=== PATIENT | female | born 1940 | race Caucasian/White ===

== ENCOUNTER → 2017-05-17 | Outpatient (CLI) | payer MEDICARE ==
[2015-11-11 13:00] VITALS: BP 137/50
[~2017-05-17] MED LIST: AMLO10TA2 PO; BIMA2.5D EACHEYE; BIMA2.5D OP; PROAIR HFA8.5 GM INH; SIMV40TA3 PO; TELM1TAB3 PO
--- NOTE | 2017-05-17 11:50 | CARD ---
APPROVED REPORT EXAM: Two-dimensional and M-mode echocardiogram with Doppler and color Doppler. Other Information Quality : Good INDICATION Hypertension/HCVD RISK FACTORS Smoking 2D DIMENSIONS RVDd2.4 (2.9-3.5cm)Left Atrium(2D)2.7 (1.6-4.0cm) IVSd1.1 (0.7-1.1cm)Aortic Root(2D)2.9 (2.0-3.7cm) LVDd3.8 (3.9-5.9cm)LVOT Diameter2.0 (1.8-2.4cm) PWd1.0 (0.7-1.1cm)LVDs2.8 (2.5-4.0cm) FS (%) 30.0 %SV32.7 ml LVEF(%)55.0 (>50%) Aortic Valve AoV Peak Drew.143.4cm/sAoV VTI28.8cm AO Peak GR.8.2mmHgLVOT Peak Drew.98.6cm/s LVOT VTI 22.33cmAO Mean GR.4mmHg SHAGUFTA (VMAX)2.66lb1RZM (VTI)2.48cm2 AI P 1/2 Lbhn468bp Mitral Valve MV E Uenuupck83.5cm/sMV DECEL SQRO449qf MV A Wjhxtaua93.8cm/sMV SKK08sf E/A Ratio0.8MVA (PHT)3.35cm2 TDI E/Lateral E'8.4E/Medial E'14.0 Tricuspid Valve TR P. Mvvztyvd616md/sRAP PVSXRGBL7dbSh TR Peak Gr.84irLsHSAB71syVz Pulmonary Vein S1 Pozwgbli93.4cm/sD2 Ngjliuph49.6cm/s LEFT VENTRICLE The left ventricle is normal size. There is normal left ventricular wall thickness. The left ventricu lar systolic function is normal and the ejection fraction is within normal range. The Ejection Fracti on is 55%. There is normal LV segmental wall motion. Transmitral Doppler flow pattern is Grade I-abno rmal relaxation pattern. RIGHT VENTRICLE The right ventricle is normal size. The right ventricular systolic function is normal. ATRIA The left atrium size is normal. The right atrium size is normal. The interatrial septum is intact wit h no evidence for an atrial septal defect or patent foramen ovale as noted on 2-D or Doppler imaging. AORTIC VALVE The aortic valve is sclerotic but opens well. Doppler and Color Flow revealed mild to moderate aortic regurgitation. There is no significant aortic valvular stenosis. MITRAL VALVE The mitral valve is calcified but opens well. Mitral annular calcification is mild. There is no evide nce of mitral valve prolapse. There is no mitral valve stenosis. Doppler and Color-flow revealed mild mitral regurgitation. TRICUSPID VALVE The tricuspid valve is normal in structure and function. Doppler and Color Flow revealed trace to mil d tricuspid regurgitation. The PA pressure was estimated at 41 mmHg. There is no tricuspid valve sten osis. PULMONIC VALVE The pulmonic valve is not well visualized but appears to be functioning normally by Doppler interroga tion. Doppler and Color Flow revealed no pulmonic valvular regurgitation. There is no pulmonic valvul ar stenosis. GREAT VESSELS The aortic root is normal in size. The ascending aorta is not well seen. The IVC is normal in size an d collapses >50% with inspiration. PERICARDIAL EFFUSION There is no evidence of significant pericardial effusion. Critical Notification Critical Value: No <Conclusion> The left ventricular systolic function is normal and the ejection fraction is within normal range. Th e Ejection Fraction is 55%. There is normal LV segmental wall motion. Doppler and Color Flow revealed mild to moderate aortic regurgitation. Doppler and Color Flow revealed trace to mild tricuspid regurgitation. The PA pressure was estimated at 41 mmHg.
== END | disposition home or self-care (01) ==
LOC: ECHO 09:19
PROVIDERS: ATTEND Internal Medicine Cardiovascular Disease
DX: I08.2 Rheumatic disorders of both aortic and tricuspid valves (principal); I10 Essential (primary) hypertension
CPT/HCPCS: 93306

== ENCOUNTER → 2017-10-31 | Outpatient (CLI) | payer MEDICARE ==
[2017-10-31] MEDS: REGADENOSON 0.4 MG/5 ML DISP.SYRIN. IV ×2 (10:09)
== END | disposition home or self-care (01) ==
LOC: NM 08:01
DX: I73.9 Peripheral vascular disease, unspecified (principal); I65.22 Occlusion and stenosis of left carotid artery
CPT/HCPCS: 78452; 93017; 93880; 96374; 96375; 96376; A9500; J2785

== ENCOUNTER → 2018-07-03 | Outpatient (CLI) | payer MEDICARE ==
[2015-11-11 13:00] VITALS: BP 137/50
[~2018-07-03] MED LIST changes: -AMLO10TA2 PO; +AMLO10TA6 PO
--- NOTE | 2018-07-03 12:04 | CARD ---
MR#: [id number] Date of Study: 07/03/2018 Ordering Physician: BRYCE JOSEPH, Referring Physician: BRYCE JOSEPH Tech: Jasmine Salguero RDCS APPROVED REPORT EXAM: Two-dimensional and M-mode echocardiogram with Doppler and color Doppler. Other Information Quality : Good INDICATION Hypertension/HCVD 2D DIMENSIONS RVDd2.1 (2.9-3.5cm)Left Atrium(2D)2.8 (1.6-4.0cm) IVSd0.9 (0.7-1.1cm)Aortic Root(2D)2.9 (2.0-3.7cm) LVDd4.2 (3.9-5.9cm)LVOT Diameter2.1 (1.8-2.4cm) PWd0.7 (0.7-1.1cm)LVDs3.1 (2.5-4.0cm) FS (%) 26.3 %SV40.0 ml LVEF(%)55.0 (>50%) Aortic Valve AoV Peak Drew.125.5cm/sAoV VTI22.4cm AO Peak GR.6.3mmHgLVOT Peak Drew.84.7cm/s LVOT VTI 19.10cmAO Mean GR.3mmHg SHAGUFTA (VMAX)2.96ix1KLN (VTI)2.99cm2 AI P 1/2 Iaan485qq Mitral Valve MV E Qvscqfxv47.2cm/sMV DECEL IWJA903aj MV A Ghkssrdi35.6cm/sMV LGT99xz E/A Ratio0.7MVA (PHT)3.29cm2 TDI E/Lateral E'6.1E/Medial E'8.6 Tricuspid Valve TR P. Ucucdvfa137ve/sRAP VNUZZDRD6hfOl TR Peak Gr.89uaSkBNSQ32rwAr Pulmonary Vein S1 Qisvscsl59.1cm/sD2 Qeonjvfj60.4cm/s LEFT VENTRICLE The left ventricle is normal size. There is normal left ventricular wall thickness. The left ventricu lar systolic function is normal. The ejection fraction is 55-60%. There is normal LV segmental wall m otion. Transmitral Doppler flow pattern is Grade I-abnormal relaxation pattern. RIGHT VENTRICLE The right ventricle is normal size. The right ventricular systolic function is normal. ATRIA The left atrium size is normal. The right atrium size is normal. The interatrial septum is intact wit h no evidence for an atrial septal defect or patent foramen ovale as noted on 2-D or Doppler imaging. AORTIC VALVE The aortic valve is not well visualized but appears to be opening well. Doppler and Color Flow reveal ed mild aortic regurgitation. There is no significant aortic valvular stenosis. MITRAL VALVE The mitral valve is calcified but opens well. There is no evidence of mitral valve prolapse. There is no mitral valve stenosis. Doppler and Color-flow revealed trace to mild mitral regurgitation. TRICUSPID VALVE The tricuspid valve is normal in structure and function. Doppler and Color Flow revealed mild tricusp id regurgitation. The PA pressure was estimated at 36 mmHg. There is no tricuspid valve stenosis. PULMONIC VALVE The pulmonic valve is not well visualized. Doppler and Color Flow revealed trace to mild pulmonic theresa vular regurgitation. There is no pulmonic valvular stenosis. GREAT VESSELS The aortic root is normal in size. The ascending aorta is not well seen. The IVC is normal in size an d collapses >50% with inspiration. PERICARDIAL EFFUSION There is no evidence of significant pericardial effusion. Critical Notification Critical Value: No <Conclusion> The left ventricle is normal size. The left ventricular systolic function is normal. The ejection fraction is 55-60%. There is no significant aortic valvular stenosis. Doppler and Color Flow revealed mild aortic regurgitation. Doppler and Color-flow revealed trace to mild mitral regurgitation. Doppler and Color Flow revealed mild tricuspid regurgitation. The PA pressure was estimated at 36 mmHg. Signed by : Kvng Rodriguez MD Electronically Approved : 07/03/2018 12:03:38
== END | disposition home or self-care (01) ==
LOC: ECHO 10:38
PROVIDERS: ATTEND Internal Medicine Cardiovascular Disease
DX: I08.2 Rheumatic disorders of both aortic and tricuspid valves (principal); I10 Essential (primary) hypertension
CPT/HCPCS: 93306

== ENCOUNTER → 2019-07-31 | Outpatient (CLI) | payer MEDICARE, BC ==
[2015-11-11 13:00] VITALS: BP 137/50
[~2019-07-31] MED LIST changes: +ALBU2.5V8 INH; -AMLO10TA6 PO; +AMLO10TA8 PO; -PROAIR HFA8.5 GM INH; +REGADENOSON 0.4 MG/5 ML DISP.SYRIN. IV ONE; +SIMV40TA18 PO; -SIMV40TA3 PO
--- NOTE | 2019-07-31 12:54 | RAD ---
MR#: [id number] Date of Study: 07/31/2019 Ordering Physician: BRYCE JOSEPH, Referring Physician: JOSE ENRIQUE FLORENCE Tech: JOESPH Robert ARRT (R) (N) APPROVED REPORT Test Type: Pharmacological Stress Nurse/Tech: Guillermina RESTREPO Test Indications: P.A.D Cardiac History: HTN, See EMR. Medications: ASA 81mg QD, See EMR. Medical History: COPD, See EMR. Resting ECG: SR Resting Heart Rate: 73 bpm Resting Blood Pressure: 144/54mmHg Pretest Chest Pain: No chest pain Nurse/Tech Notes Lungs CTA, Heart tones regular. Consent: The procedure was explained to the patient in lay terms. Informed consent was witnessed. Rigo eout was entered into [employer], Mobile Secretary. History and Stress Test performed by JOESPH Robert ARRT (R) (N) Pharm. Details Pharmacologic stress testing was performed using 0.4mg per 5ml of regadenoson given intravenously ove r 7-10 seconds. Stress Symptoms No chest pain or symptoms. POST EXERCISE Reason for Termination: Infusion complete Max HR: 110 bpm Max Blood Pressure: 144/53mmHg Blood Pressure response to exercise: Normal blood pressure response during stress. Heart Rate response to exercise: WNL Chest Pain: No. Arrhythmia: No. ST Change: No. INTERPRETATION Stress EKG Conclusion: The resting EKG shows a sinus rhythm with mild nonspecific ST segment changes. The stress EKG shows no significant changes from baseline. No EKG evidence of stress-induced ischemia. Imaging Protocol IMAGE PROTOCOL: Rest Tc-99m/stress Tc-99m 1 day Rest: Stress: Viability: Radiopharm.Tc99m BxxvgzqmcEa52d Sestamibi Qeid50lSm 32mCi Img Date 07/31/2019 07/31/2019 Inj-Img Ougx77mfs. 60min. Rest Admin Site:IV - Right HandAdministrator:JOESPH Robert ARRT (R)(N) Stress Admin Site: IV - Right HandAdministrator: STEPHANIE RiveraR)(N) STRESS DATA End Diast. Vol.33.0mlAv. Heart Rate86.0bpm End Syst. Vol.3.0mlCO Index BSA0.0L/min Myocardial Mass77.0gEject. Mtubvuri27.0% Stress Rates Pk. Fill Rate6.71EDV/secLVtime Pk. Fill 118.70msec Pk. Empty Rate5.23ESV/secLVtime Pk. Lxofn888.19msec /3 Pk. Fill1.96EDV/sec Stress Scores Regional WT3.00Summed WT19.00 Regional WM0.00Summed WM0.00 LV Perfusion The stress scans showed no significant defects. The rest scans showed no significant defects. Nuclear imaging shows no reversible ischemia or infarct. Wall Motion Left ventricular systolic function is normal with no regional wall motion abnormalities and an ejecti on fraction of greater than 70%. LV Perf. Quant 17 Seg. SSS4.00 17 Seg. SRS2.00 17 Seg. SDS2.00 Stress Defect Extent (% LAD)0.00Rest Defect Extent (% LAD)0.00Rev. Defect Extent (% LAD)0.00 Stress Defect Extent (% LCX) 1.30Rest Defect Extent (% LCX)7.50Rev. Defect Extent (% LCX)0.00 Stress Defect Extent (% RCA)0.00Rest Defect Extent (% RCA)0.00Rev. Defect Extent (% RCA)0.00 Stress Defect Extent (% DAVE)0.20Rest Defect Extent (% DAVE)1.30Rev. Defect Extent (% DAVE)0.00 Conclusion 1. No EKG evidence of stressed induced ischemia. 2. Nuclear imaging shows no reversible ischemia or infarct. 3. Normal left ventricular systolic function with an ejection fraction of greater than 70%. 4. Low risk Lexiscan nuclear stress test. Signed by : Kvng Rodriguez MD Electronically Approved : 07/31/2019 12:54:11
--- NOTE | 2019-07-31 14:28 | CARD ---
MR#: [id number] Date of Study: 07/31/2019 Ordering Physician: BRYCE JOSEPH, Referring Physician: Ramin FLORENCE: Natalia Talley APPROVED REPORT EXAM: Two-dimensional and M-mode echocardiogram with Doppler and color Doppler. Other Information Quality : AverageHR: 98bpm INDICATION Hypertension/HCVD 2D DIMENSIONS RVDd2.6 (2.9-3.5cm)Left Atrium(2D)2.7 (1.6-4.0cm) IVSd1.4 (0.7-1.1cm)Aortic Root(2D)2.4 (2.0-3.7cm) LVDd3.2 (3.9-5.9cm)LVOT Diameter2.0 (1.8-2.4cm) PWd1.0 (0.7-1.1cm)LVDs1.9 (2.5-4.0cm) FS (%) 40.9 %SV29.5 ml LVEF(%)73.1 (>50%) Aortic Valve AoV Peak Drew.124.4cm/sAoV VTI22.5cm AO Peak GR.6.2mmHgLVOT Peak Drew.122.3cm/s AO Mean GR.4mmHgAVA (VMAX)3.21cm2 AI P 1/2 Zcbe548rk Mitral Valve MV E Rjueuvqj21.0cm/sMV E Peak Gr.8mmHg MV DECEL LTZA921gfOI A Pjvllhdf799.6cm/s MV E Mean Gr.4mmHgE/A Ratio0.6 Pulmonary Valve PV Peak Peonfyfp542.5cm/s Tricuspid Valve TR P. Zubfhzif938oj/sRAP HPIXFOWF8abEh TR Peak Gr.80acWdNFQH42imVa Pulmonary Vein S1 Ugjsytin57.5cm/sD2 Nzmsekyq92.4cm/s LEFT VENTRICLE The left ventricle is normal size. There is mild septal left ventricular hypertrophy. The left ventri cular systolic function is normal and the ejection fraction is within normal range. The Ejection Frac tion is 65-70%. There is normal LV segmental wall motion. Transmitral Doppler flow pattern is Grade I -abnormal relaxation pattern. RIGHT VENTRICLE The right ventricle cavity is small. There is normal right ventricular wall thickness. The right vent ricular systolic function is normal. ATRIA The left atrium size is normal. The right atrium size is normal. The interatrial septum is intact wit h no evidence for an atrial septal defect or patent foramen ovale as noted on 2-D or Doppler imaging. AORTIC VALVE The aortic valve is thickened but opens well. Doppler and Color Flow revealed mild aortic regurgitati on. There is no significant aortic valvular stenosis. MITRAL VALVE The mitral valve is thickened but opens well. There is no evidence of mitral valve prolapse. There is no mitral valve stenosis. Doppler and Color-flow revealed trace mitral regurgitation. TRICUSPID VALVE The tricuspid valve is normal in structure and function. Doppler and Color Flow revealed mild tricusp id regurgitation with an estimated PAP of 33 mmHg. There is no tricuspid valve stenosis. PULMONIC VALVE The pulmonic valve is not well visualized. Doppler and Color Flow revealed no pulmonic valvular regur gitation. There is no pulmonic valvular stenosis. GREAT VESSELS The aortic root is normal in size. The ascending aorta is normal in size. The IVC is normal in size a nd collapses >50% with inspiration. PERICARDIAL EFFUSION There is no pleural effusion. There is no evidence of significant pericardial effusion. Critical Notification Critical Value: No <Conclusion> The left ventricular systolic function is normal and the ejection fraction is within normal range. Th e Ejection Fraction is 65-70%. There is normal LV segmental wall motion. Signed by : Marciano Martinez, Electronically Approved : 07/31/2019 14:27:28
== END | disposition home or self-care (01) ==
LOC: NM 15:07
PROVIDERS: ATTEND Internal Medicine Cardiovascular Disease
DX: I08.2 Rheumatic disorders of both aortic and tricuspid valves (principal); I11.9 Hypertensive heart disease without heart failure; I73.9 Peripheral vascular disease, unspecified; J44.9 Chronic obstructive pulmonary disease, unspecified
CPT/HCPCS: 78452; 93017; 93306; A9500; J2785

== ENCOUNTER → 2020-02-29 | Outpatient (CLI) | payer MEDICARE, BC ==
[2015-11-11 13:00] VITALS: BP 137/50
[~2020-02-29] MED LIST changes: -REGADENOSON 0.4 MG/5 ML DISP.SYRIN. IV ONE
--- NOTE | 2020-02-29 12:29 | RAD ---
MR#: [id number] Date of Study: 02/29/2020 Ordering Physician: BRYCE JOSEPH, Referring Physician: BRYCE JOSEPH, Tech: Miguelito Askew MBA, RDMS, RVT, RDCS, RTR APPROVED REPORT Patient Location: OUT-PATIENT Indications PAD VELOCITY AND DOPPLER WAVEFORM ANALYSIS RIGHT cm/secWaveformSeverity LEFT cm/secWaveform Severity dCFA 287.0BiphasicdCFA 124.0Biphasic Prof Fem Art. 253.0BiphasicProf Fem Art. 49.0Biphasic Fem Art Prox. 141.0BiphasicFem Art Prox. 60.0Biphasic Fem Art Mid. 104.0BiphasicFem Art Mid. 65.0Biphasic Fem Art Dist. 193.0BiphasicFem Art Dist. 44.0Biphasic Pop Art(Fossa) 126.0BiphasicPop Art(AK) 47.0Biphasic SUPERVISOR GRADING Prox. 60.0BiphasicPTA Prox. 34.0Biphasic SUPERVISOR GRADING Dist. 61.0BiphasicPTA Dist. 34.0Biphasic Per Art Mid. 59.0BiphasicPer Art Mid. 33.0Biphasic ALBERTO Prox. 70.0BiphasicATA Prox. 29.0Biphasic DPA 21BiphasicDPA 19Biphasic Findings Grayscale images of the bilateral lower extremity arterial vessels demonstrate moderate diffuse plaqu e. On the right side there is moderate plaque noted at the level of the common femoral artery with eleva marsha velocities consistent with greater than 50% stenosis. This extends into the profunda femoris art stacey. There are biphasic waveforms in the superficial femoral and popliteal arteries. Below the knee there is three-vessel runoff with normal velocities. Dorsalis pedis arterial velocities are severel y diminished. On the left normal velocities are noted in the common femoral artery. Slightly diminished velocities and a monophasic wave pattern are noted in the superficial femoral artery. Below-knee vessels demon strate monophasic wave forms with diminished velocities suggestive of moderate diffuse disease. Critical Notification Critical Value: No <Conclusion> 1. Probable greater than 50% stenosis involving the common femoral artery 2. Probable moderate diffuse disease in the left lower extremity. 3. Bilateral three-vessel runoff was diminished flow on the left greater than the right. Signed by : Marciano Martinez, Electronically Approved : 02/29/2020 12:29:01
== END | disposition home or self-care (01) ==
LOC: US 10:05
PROVIDERS: ATTEND Internal Medicine Cardiovascular Disease
DX: I70.201 Unspecified atherosclerosis of native arteries of extremities, right leg (principal)
CPT/HCPCS: 93925

== ENCOUNTER → 2020-08-26 | Outpatient (CLI) | payer MEDICARE, BC ==
[2015-11-11 13:00] VITALS: BP 137/50
[~2020-08-26] MED LIST changes: +AMLO-187 PO; -AMLO10TA8 PO
--- NOTE | 2020-08-26 12:09 | CARD ---
MR#: [id number] Date of Study: 08/26/2020 Ordering Physician: BRYCE JOSEPH, Referring Physician: BRYCE JOSEPH Tech: Chaya Sotelo RDCS APPROVED REPORT EXAM: Two-dimensional and M-mode echocardiogram with Doppler and color Doppler. Other Information Quality : Average Rhythm : NSR INDICATION Hypertension/HCVD RISK FACTORS Hypertension 2D DIMENSIONS IVSd1.1 (0.7-1.1cm)Aortic Root(2D)3.3 (2.0-3.7cm) LVDd3.0 (3.9-5.9cm)LVOT Diameter2.2 (1.8-2.4cm) PWd1.1 (0.7-1.1cm)LVDs2.0 (2.5-4.0cm) FS (%) 33.6 %SV21.7 ml LVEF(%)64.1 (>50%) Aortic Valve AI P 1/2 Jhrb952ft Mitral Valve MV E Euxrsabl218.1cm/sMV DECEL TLLL258ay MV A Pfchtrxe575.9cm/sE/A Ratio1.0 MV A Daqgyrex493fb Pulmonary Valve PV Peak Deiglqvj95.6cm/s Tricuspid Valve TR P. Pxzjamhd349rz/sTR Peak Gr.39mmHg Pulmonary Vein S1 Ijnhwjqu62.4cm/sD2 Itbgvjtz27.3cm/s PVa fighgqnv75wnrb LEFT VENTRICLE The left ventricle is normal size. There is mild concentric left ventricular hypertrophy. The left ve ntricular systolic function is normal and the ejection fraction is within normal range. The EF is 65- 70 %. No regional wall motion abnormalities noted. Tissue Doppler imaging reveals moderate left ventr icular diastolic dysfunction. No left ventricle thrombus noted on this study. There is no ventricular septal defect visualized. There is no left ventricular aneurysm. There is no mass noted in the left ventricle. RIGHT VENTRICLE The right ventricle is normal size. There is normal right ventricular wall thickness. The right ventr icular systolic function is normal. ATRIA The left atrium size is normal. The right atrium size is normal. The interatrial septum is intact wit h no evidence for an atrial septal defect or patent foramen ovale as noted on 2-D or Doppler imaging. AORTIC VALVE The aortic valve is trileaflet. The aortic valve is mildly sclerotic. Doppler and Color Flow revealed trace aortic regurgitation. There is no aortic valvular stenosis. There is no aortic valvular vegeta tion. MITRAL VALVE The mitral valve is normal in structure and function. There is no evidence of mitral valve prolapse. There is no mitral valve stenosis. There is no mitral valve regurgitation noted. TRICUSPID VALVE The tricuspid valve is normal in structure and function. Doppler and Color Flow revealed trace tricus pid regurgitation. RVSP of 39 mm Hg. There is no tricuspid valve prolapse or vegetation. There is no tricuspid valve stenosis. PULMONIC VALVE Doppler and Color Flow revealed no pulmonic valvular regurgitation. There is no pulmonic valvular ling nosis. GREAT VESSELS The aortic root is normal in size. The ascending aorta and aortic arch were not seen. The IVC is norm al in size and collapses >50% with inspiration. PERICARDIAL EFFUSION There is no evidence of significant pericardial effusion. Critical Notification Critical Value: No <Conclusion> The left ventricular systolic function is normal and the ejection fraction is within normal range. Th e EF is 65-70 %. No regional wall motion abnormalities noted. Doppler and Color Flow revealed trace aortic regurgitation. Doppler and Color Flow revealed trace tricuspid regurgitation. RVSP of 39 mm Hg. Signed by : Marciano Martinez, Electronically Approved : 08/26/2020 12:09:16
== END ==
LOC: ECHO 08:38
PROVIDERS: ATTEND Internal Medicine Cardiovascular Disease
DX: I11.9 Hypertensive heart disease without heart failure (principal)
CPT/HCPCS: 93306

== ENCOUNTER → 2021-03-02 | Outpatient (CLI) | payer MEDICARE, BC ==
[2015-11-11 13:00] VITALS: BP 137/50
--- NOTE | 2021-03-02 11:03 | RAD ---
MR#: [id number] Date of Study: 03/02/2021 Ordering Physician: BRYCE JOSEPH, Referring Physician: BRYCE JOSEPH, Tech: Miguelito Askew MBA, RDMS, RVT, RDCS, RTR APPROVED REPORT Patient Location: OUT-PATIENT Laterality:Bilateral Indications LT CAROTID STENOSIS PT HAD LT ENDARTERECTOMY Surgery/Intervention Endarterectomy: left Doppler Spectral Velocity Analysis Right Left pCCA 73/12 cm/spCCA 99/15 cm/s mCCA 76/13 cm/smCCA 66/13 cm/s dCCA 86/19 cm/sdCCA 102/15 cm/s Bulb 100/22 cm/sBulb 104/15 cm/s ECA 341/ cm/sECA 121/ cm/s pICA 103/20 cm/spICA 101/22 cm/s Valerie 108/21 cm/smICA 104/31 cm/s dICA 79/18 cm/sdICA 112/29 cm/s Vert. 60/ cm/sVert. 104/ cm/s Subcl. 145/ cm/sSubcl. 160/ cm/s ICA/CCA 1.26ICA/CCA 1.13 Findings Grayscale images of the bilateral carotid vessels demonstrate moderate on the right and mild on the l eft carotid atherosclerosis. Spectral waveforms and color Doppler on the right side demonstrate overall 0 to less than 50% stenosi s involving the internal carotid artery. There is likely greater than 70% stenosis based on velocity criteria involving the external carotid artery. Normal antegrade vertebral velocities and normal IC A to CCA ratios. On the left side there overall 0 to less than 50% stenosis with normal velocities in the internal car otid and external carotid arteries. Normal antegrade vertebral velocities with normal ICA to CCA rat ios. Limited evaluation of subclavian arteries does not reveal any significant obstructive disease. Critical Notification Critical Value: No <Conclusion> 1. No significant bilateral extracranial internal carotid occlusive disease. 2. Probable greater than 70% stenosis involving the right external carotid artery. Signed by : Marciano Martinez, Electronically Approved : 03/02/2021 11:02:43
== END ==
LOC: US 08:52
PROVIDERS: ATTEND Internal Medicine Cardiovascular Disease
DX: I65.23 Occlusion and stenosis of bilateral carotid arteries (principal)
CPT/HCPCS: 93880

== ENCOUNTER → 2021-09-21 | Outpatient (CLI) | payer MEDICARE, BC ==
[2015-11-11 13:00] VITALS: BP 137/50
--- NOTE | 2021-09-21 11:26 | RAD ---
MR#: [id number] Date of Study: 09/21/2021 Ordering Physician: BRYCE JOSEPH, Referring Physician: BRYCE JOSEPH, Tech: Nilda Osullivan RT R, CT RDMS AB, T APPROVED REPORT Patient Location: OUT-PATIENT Laterality:Bilateral Indications [place]en[place] follow up lt endarterectomy Surgery/Intervention Endarterectomy: left Doppler Spectral Velocity Analysis Right Left pCCA 82/18 cm/spCCA 83/19 cm/s mCCA 83/17 cm/smCCA 116/53 cm/s dCCA 77/20 cm/sdCCA 84/29 cm/s Bulb 137/ cm/sBulb 112/ cm/s ECA 322/ cm/sECA 104/ cm/s pICA 105/28 cm/spICA 104/35 cm/s Valerie 122/34 cm/smICA 90/29 cm/s dICA 103/24 cm/sdICA 111/37 cm/s Vert. 49/ cm/sVert. 84/ cm/s ICA/CCA 1.47ICA/CCA 1.34 Findings Grayscale images of the bilateral carotid vessels demonstrates moderate diffuse atherosclerosis. On the right side there is moderate atherosclerosis of the level the carotid bulb consistent with pro bably 50% stenosis. The bilateral internal carotid arteries have overall 0 to less than 50% stenosis based on velocity criteria. The bilateral vertebral velocities are antegrade and within normal limits. The right external carotid artery demonstrates greater than 70% stenosis. Critical Notification Critical Value: No <Conclusion> 1. No significant bilateral extracranial internal carotid arterial disease 2. Moderate disease based on velocity criteria at the right carotid bulb, likely less than 50% 3. Greater than 70% stenosis involving the right external carotid artery. Signed by : Marciano Martinez, Electronically Approved : 09/21/2021 11:25:32
--- NOTE | 2021-09-21 15:38 | CARD ---
MR#: [id number] Date of Study: 09/21/2021 Ordering Physician: BRYCE JOSEPH, Referring Physician: BRYCE JOSEPH Tech: Josefina Reilly [facility] APPROVED REPORT EXAM: Two-dimensional and M-mode echocardiogram with Doppler and color Doppler. Other Information Quality : AverageHR: 86bpm Rhythm : NSR INDICATION COPD Dyspnea RISK FACTORS Hypertension Hyperlipidemia 2D DIMENSIONS Left Atrium(2D)3.0 (1.6-4.0cm)IVSd0.9 (0.7-1.1cm) Aortic Root(2D)3.2 (2.0-3.7cm)LVDd3.4 (3.9-5.9cm) LVOT Diameter1.9 (1.8-2.4cm)PWd1.0 (0.7-1.1cm) LVDs2.3 (2.5-4.0cm)FS (%) 31.7 % SV29.3 mlLVEF(%)60.8 (>50%) Aortic Valve AoV Peak Drew.129.6cm/sAoV VTI24.2cm AO Peak GR.6.7mmHgLVOT Peak Drew.89.4cm/s AO Mean GR.3mmHgAVA (VMAX)2.02cm2 AI P 1/2 Vtaw345aw Mitral Valve MV E Eexrwbii97.3cm/sMV DECEL [id number] MV A Abveolyi691.4cm/sE/A Ratio0.7 Tricuspid Valve TR P. Gzedmsfu304dm/sTR Peak Gr.32mmHg LEFT VENTRICLE The left ventricle is normal size. There is normal left ventricular wall thickness. The left ventricu lar systolic function is normal and the ejection fraction is within normal range. Estimated ejection fraction 65%. There is normal LV segmental wall motion. Transmitral Doppler flow pattern is Grade I-a bnormal relaxation pattern. RIGHT VENTRICLE The right ventricle is normal size. There is normal right ventricular wall thickness. The right ventr icular systolic function is normal. ATRIA The left atrium size is normal. The right atrium size is normal. The interatrial septum is intact wit h no evidence for an atrial septal defect or patent foramen ovale as noted on 2-D or Doppler imaging. AORTIC VALVE The aortic valve is normal in structure and function. Doppler and Color Flow revealed mild aortic reg urgitation. There is no significant aortic valvular stenosis. MITRAL VALVE The mitral valve is normal in structure and function. There is no evidence of mitral valve prolapse. There is no mitral valve stenosis. Doppler and Color-flow revealed mild mitral regurgitation. TRICUSPID VALVE The tricuspid valve is normal in structure and function. Doppler and Color Flow revealed trace tricus pid regurgitation. Estmated PAP 32 mmHg. There is no tricuspid valve stenosis. PULMONIC VALVE Doppler and Color Flow revealed no pulmonic valvular regurgitation. There is no pulmonic valvular ling nosis. GREAT VESSELS The aortic root is normal in size. The ascending aorta is normal in size. The IVC is normal in size a nd collapses >50% with inspiration. PERICARDIAL EFFUSION There is no evidence of significant pericardial effusion. Critical Notification Critical Value: No <Conclusion> The left ventricular systolic function is normal and the ejection fraction is within normal range. E stimated ejection fraction 65%. There is normal LV segmental wall motion. Doppler and Color Flow revealed mild aortic regurgitation. Doppler and Color Flow revealed trace tricuspid regurgitation. Estmated PAP 32 mmHg. Signed by : Marciano Martinez, Electronically Approved : 09/21/2021 15:38:30
== END ==
LOC: ECHO 09:35
PROVIDERS: ATTEND Internal Medicine Cardiovascular Disease
DX: I08.0 Rheumatic disorders of both mitral and aortic valves (principal); I65.21 Occlusion and stenosis of right carotid artery; I10 Essential (primary) hypertension
CPT/HCPCS: 93306; 93880